=== PATIENT | male | born 1960 | race Caucasian/White ===

== ENCOUNTER → 2016-03-08 | Outpatient (CLI) | payer OTHER ==
[2016-03-08 10:41] LABS: Basophils % (A) 0 %; CH 31.1; CHCM 32.3; Eosinophils # (A) 0.1 k/uL (0-0.7); Eosinophils % (A) 1 %; HCT 45.6 % (39.0-53.0); HGB 14.5 gm/dL (13.0-17.5); Luc % (Auto) 3; Lymphocytes # (A) 1.5 k/uL (1.0-4.8); Lymphocytes % (A) 21 %; MCH 30.8 pg (25.0-35.0); MCHC 31.8 g/dL (31.0-37.0); MCV 96.6 fL (80.0-100.0); Mean Platelet Volume 6.5; Monocytes # (A) 0.5 k/uL (0-1.0); Monocytes % (A) 6 %; Neutrophils # (A) 5.1 k/uL (1.3-7.7); Neutrophils % (A) 69 %; RBC 4.71 m/uL (4.30-5.90); RDW 13.5 % (11.5-15.5); WBC 7.4 k/uL (3.8-10.6); WBC (Perox) 7.19
[2016-03-08 11:38] LABS: AST 23 U/L (17-59); Alkaline Phosphatase 70 U/L (38-126); Blood Urea Nitrogen 10 mg/dL (9-20); Calcium 9.6 mg/dL (8.4-10.2); Chloride 106 mmol/L (98-107); Cholesterol 223 mg/dL (<200); Glucose 92 mg/dL (74-99); HDL Cholesterol 38 mg/dL (40-60); Non-African American GFR(MDRD) >60 (>60 ml/min/1.73 sqM); Potassium 5.1 mmol/L (3.5-5.1); Sodium 143 mmol/L (137-145); Total Bilirubin 0.7 mg/dL (0.2-1.3); Total Protein 7.5 g/dL (6.3-8.2); Triglycerides 169 mg/dL (<150)
[2016-03-08 12:08] LABS: Hepatitis B Surface Ag Index 0.06
[2016-03-08 12:14] LABS: Hepatitis B Core IgM Index 0.03
[2016-03-08 12:25] LABS: Hemoglobin A1C 5.2 % (4.2-6.1); Hepatitis C Virus IgG Index 0.02
[2016-03-08 12:55] LABS: Hepatitis C Virus IgG Ab Negative (Negative)
[2016-03-08 13:09] LABS: ALT 35 U/L (21-72); Anion Gap 13 mmol/L; Carbon Dioxide 24 mmol/L (22-30)
[2016-03-08 13:59] LABS: Vitamin B12 309 pg/mL (239-931)
[2016-03-09 06:34] LABS: HIV-1/HIV-2 Ab Screen NONREAC (NON REAC)
== END | disposition home or self-care (01) ==
LOC: LABWHC1 10:01
PROVIDERS: ATTEND Nurse Practitioner
DX: F33.2 Major depressive disorder, recurrent severe without psychotic features (principal); Z79.899 Other long term (current) drug therapy
CPT/HCPCS: 36415; 80053; 80061; 80074; 82306; 82607; 83036; 83735; 84153; 84439; 84443; 85025; 87389

== ENCOUNTER → 2016-05-18 | Outpatient (CLI) | payer OTHER ==
--- NOTE | 2016-05-18 09:49 | XR ---
EXAM TYPE: LUMBAR SPINE X RAY SERIES COMPARISON: 07/08/2008 HISTORY: Chronic back pain TECHNIQUE: 4 views are submitted. FINDINGS: Alignment is anatomic. The pedicles are intact. The transverse processes are intact. Postsurgical changes are seen the lower lumbosacral level. There is a grade 1 anterolisthesis. Mild degenerative disc disease and hypertrophic changes at the remaining levels. Pedicles intact. Mul tilevel mild facet arthropathy. IMPRESSION: 1. Postsurgical change with grade 1 anterolisthesis L5 on S1. 2. Multilevel mild degenerative disc disease.
== END ==
LOC: RADXRMAIN 09:13
PROVIDERS: ATTEND Family Medicine
DX: M43.16 Spondylolisthesis, lumbar region (principal); M51.36 Other intervertebral disc degeneration, lumbar region
CPT/HCPCS: 72110

== ENCOUNTER → 2017-02-25 | Outpatient (CLI) | payer OTHER ==
[2017-02-25 12:22] LABS: Blood Urea Nitrogen 18 mg/dL (9-20)
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
== END | disposition home or self-care (01) ==
LOC: RADMRIMAIN 11:47
PROVIDERS: ATTEND Psychiatry & Neurology Neurology
DX: M47.816 Spondylosis without myelopathy or radiculopathy, lumbar region (principal)
CPT/HCPCS: 82565; 84520; 72158; 36415; A9581

== ENCOUNTER 2019-06-05 14:00 | Emergency (ER) | payer OTHER ==
[2019-06-05 14:08] VITALS: TEMP 98.4
[2019-06-05] MEDS ORDERED: LABETALOL 5 MG/ML VIAL MDV IVP STA (14:27)
[2019-06-05] MEDS ORDERED: ACETAMINOPHEN TAB 500 MG TAB PO STA (14:28)
--- NOTE | 2019-06-05 14:31 | ED ---
URI HPI - General Chief Complaint: Upper Respiratory Infection Stated Complaint: fever,cough Time Seen by Provider: 06/05/19 14:11 Source: patient, RN notes reviewed, old records reviewed Mode of arrival: ambulatory Limitations: no limitations - History of Present Illness Initial Comments: 59-year-old male who currently resides in a [facility] presents today with intermittent cough congestion and general malaise. He reports symptoms of worsening over the past week. He states that he has not had any medical care, and also reports that he is out of his typical blood pressure medication for many weeks. Patient states that he plans to move in with his son and his son's . He is concerned that he may have a illness such as cold that they could affect his sons . He wanted to make sure he had a "clean bill of health". Before moving in with them. - Related Data Home Medications Medication Instructions Recorded Confirmed Albuterol Inhaler (Bulk) [Ventolin 1 - 2 puff INHALATION RT-Q6H PRN 02/12/17 02/12/17 Hfa Inhaler] Ergocalciferol (Vitamin D2) 50,000 unit PO TH 02/12/17 02/12/17 [Vitamin D2] FLUoxetine HCL [PROzac] 60 mg PO DAILY 02/12/17 02/12/17 Lisinopril [Zestril] 5 mg PO DAILY 02/12/17 02/12/17 Naltrexone HCl [Revia] 50 mg PO DAILY 02/12/17 02/12/17 busPIRone HCl [Buspar] 10 mg PO BID 02/12/17 02/12/17 risperiDONE [RisperDAL] 0.5 mg PO HS 02/12/17 02/12/17 traMADol HCL [Ultram] 50 mg PO TID PRN 02/12/17 02/12/17 Previous Rx's Medication Instructions Recorded Albuterol Inhaler [Ventolin Hfa 1 puff INHALATION RT-QID #1 puff 06/05/19 Inhaler] Azithromycin [Zithromax Z-pack] 0 mg PO DIRECTED #6 tab 06/05/19 Lisinopril [Zestril] 5 mg PO DAILY #14 tab 06/05/19 methylPREDNISolone Dose Pack 4 mg PO DIRECTED #21 package 06/05/19 [Medrol Dose Pack] Allergies Allergy/AdvReac Type Severity Reaction Status Date / Time No Known Allergies Allergy Unverified 02/12/17 15:02 Review of Systems ROS Statement: Those systems with pertinent positive or pertinent negative responses have been documented in the HPI. ROS Other: All systems not noted in ROS Statement are negative. Past Medical History Additional Past Medical History / Comment(s): chronic pain History of Any Multi-Drug Resistant Organisms: None Reported Past Surgical History: Back Surgery, Orthopedic Surgery Past Psychological History: Anxiety, Bipolar, Depression Smoking Status: Current every day smoker Past Alcohol Use History: Occasional Past Drug Use History: None Reported General Exam - General Exam Comments Initial Comments: Well-appearing 59-year-old male. No significant distress. Limitations: no limitations General appearance: alert, in no apparent distress Head exam: Present: atraumatic, normocephalic, normal inspection Eye exam: Present: normal appearance, PERRL, EOMI. Absent: scleral icterus, conjunctival injection, periorbital swelling ENT exam: Present: normal exam, mucous membranes moist Neck exam: Present: normal inspection. Absent: tenderness, meningismus, lymphadenopathy Respiratory exam: Present: normal lung sounds bilaterally. Absent: respiratory distress, wheezes, rales, rhonchi, stridor Cardiovascular Exam: Present: regular rate, normal rhythm, normal heart sounds. Absent: systolic murmur, diastolic murmur, rubs, gallop, clicks GI/Abdominal exam: Present: soft, normal bowel sounds. Absent: distended, te nderness, guarding, rebound, rigid Extremities exam: Present: normal inspection, full ROM, normal capillary refill. Absent: tenderness, pedal edema, joint swelling, calf tenderness Back exam: Present: normal inspection Neurological exam: Present: alert, oriented X3, CN II-XII intact Psychiatric exam: Present: normal affect, normal mood Skin exam: Present: warm, dry, intact, normal color. Absent: rash Course Vital Signs 06/05/19 06/05/19 06/05/19 14:06 14:08 15:08 Temperature 98.4 F Pulse Rate 100 65 Respiratory 20 18 18 Rate Blood Pressure 214/95 180/91 O2 Sat by Pulse 97 95 Oximetry Medical Decision Making - Medical Decision Making This patient's a pleasant 59-year-old male, he presents today for concern for cough congestion. He does currently live in a [facility]. He states she's been having some general malaise and upper respirator symptoms. He will states that he also has not had his blood pressure medication for weeks. He arrives emergency department hypertensive with blood pressure 200/100. Patient is a denies any chest pain, headache or symptoms related to high blood pressure. Patient's lungs are clear. No wheezing. Lab work was reviewed, and I did do a Covid 19 T Patient has been exposed to public and concern for high risk patients that he lives with in his [facility]. This test will be pending. Discussed that trish janie should practice self quarnetining with symptoms and advised on staying away from others until symptom free. I discussed that his blood work was unremarkable and chest x-ray shows no acute changes. Patient influenza test is negative. Covid 19 test is pending. Patient will be treated at this time with steroids for minor cough congestion and azithromycin with a history of smoking and COPD exacerbation. Discussed return parameters and following up with PCPs. I discussed also restarting the Patient on his blood pressure medication. - Lab Data Result diagrams: 06/05/19 14:48 06/05/19 14:48 Lab Results 06/05/19 06/05/19 06/05/19 Range/Units 14:45 14:48 14:48 WBC 8.6 (3.8-10.6) k/uL RBC 5.11 (4.30-5.90) m/uL Hgb 16.4 (13.0-17.5) gm/dL Hct 48.5 (39.0-53.0) % MCV 94.9 (80.0-100.0) fL MCH 32.2 (25.0-35.0) pg MCHC 33.9 (31.0-37.0) g/dL RDW 13.1 (11.5-15.5) % Plt Count 361 (150-450) k/uL Neutrophils % 71 % Lymphocytes % 20 % Monocytes % 5 % Eosinophils % 1 % Basophils % 1 % Neutrophils # 6.2 (1.3-7.7) k/uL Lymphocytes # 1.7 (1.0-4.8) k/uL Monocytes # 0.5 (0-1.0) k/uL Eosinophils # 0.1 (0-0.7) k/uL Basophils # 0.0 (0-0.2) k/uL Sodium 133 L (137-145) mmol/L Potassium 5.3 H (3.5-5.1) mmol/L Chloride 100 (98-107) mmol/L Carbon Dioxide 20 L (22-30) mmol/L Anion Gap 13 mmol/L BUN 11 (9-20) mg/dL Creatinine 0.85 (0.66-1.25) mg/dL Est GFR (CKD-EPI)AfAm >90 (>60 ml/min/1.73 sqM) Est GFR (CKD-EPI)NonAf >90 (>60 ml/min/1.73 sqM) Glucose 92 (74-99) mg/dL Calcium 9.7 (8.4-10.2) mg/dL Total Bilirubin 1.0 (0.2-1.3) mg/dL AST 50 (17-59) U/L ALT 28 (4-49) U/L Alkaline Phosphatase 77 (38-126) U/L Total Protein 8.2 (6.3-8.2) g/dL Albumin 5.0 (3.5-5.0) g/dL Influenza Type A RNA Not Detected (Not Detectd) Influenza Type B (PCR) Not Detected (Not Detectd) Disposition Clinical Impression: Hypertension, Bronchitis, Smoker Disposition: HOME SELF-CARE Condition: Good Instructions (If sedation given, give patient instructions): Upper Respiratory Infection (ED) Additional Instructions: Patient advised to follow-up with primary care physician. Resume blood pressure medication. Take the antibiotic and steroid. Recommended stop smoking. Patient should practice self quarentining while having these symptoms to avoid exposing others to being sick. Prescriptions: methylPREDNISolone Dose Pack [Medrol Dose Pack] 4 mg PO DIRECTED #21 package Albuterol Inhaler [Ventolin Hfa Inhaler] 1 puff INHALATION RT-QID #1 puff Lisinopril [Zestril] 5 mg PO DAILY #14 tab Azithromycin [Zithromax Z-pack] 0 mg PO DIRECTED #6 tab Is patient prescribed a controlled substance at d/c from ED?: No Referrals: [facility] [Primary Care Provider] - 1-2 days Time of Disposition: 15:45
[2019-06-05 15:04] LABS: Basophils % (A) 1 %; Eosinophils # (A) 0.1 k/uL (0-0.7); Eosinophils % (A) 1 %; HCT 48.5 % (39.0-53.0); HGB 16.4 gm/dL (13.0-17.5); Lymphocytes # (A) 1.7 k/uL (1.0-4.8); Lymphocytes % (A) 20 %; MCH 32.2 pg (25.0-35.0); MCHC 33.9 g/dL (31.0-37.0); MCV 94.9 fL (80.0-100.0); Mean Platelet Volume 7.2; Monocytes # (A) 0.5 k/uL (0-1.0); Monocytes % (A) 5 %; Neutrophils # (A) 6.2 k/uL (1.3-7.7); Neutrophils % (A) 71 %; Platelet Count 361 k/uL (150-450); RBC 5.11 m/uL (4.30-5.90); RDW 13.1 % (11.5-15.5); WBC 8.6 k/uL (3.8-10.6)
[2019-06-05 15:10] VITALS: RESP 18
[2019-06-05 15:15] LABS: ALT 28 U/L (4-49); AST 50 U/L (17-59); African American GFR (CKD) >90 (>60 ml/min/1.73 sqM); Alkaline Phosphatase 77 U/L (38-126); Anion Gap 13 mmol/L; Blood Urea Nitrogen 11 mg/dL (9-20); Calcium 9.7 mg/dL (8.4-10.2); Carbon Dioxide 20 mmol/L (22-30); Chloride 100 mmol/L (98-107); Glucose 92 mg/dL (74-99); Non-African American GFR(CKD) >90 (>60 ml/min/1.73 sqM); Sodium 133 mmol/L (137-145); Total Protein 8.2 g/dL (6.3-8.2)
[2019-06-05 15:17] LABS: Potassium 5.3 mmol/L (3.5-5.1)
[2019-06-05] MEDS ORDERED: cloNIDine HCL 0.2 MG TAB PO STA (15:23)
--- NOTE | 2019-06-05 15:28 | XR ---
EXAMINATION TYPE: XR chest 1V DATE OF EXAM: 06/05/2019 HISTORY: Shortness of breath. COMPARISON: 02/22/2014 TECHNIQUE: Single view of the chest is submitted. FINDINGS: Demonstrated are scattered senescent parenchymal change. There is no evidence for focal infiltrate. The heart is stable. Hilar and mediastinal structures are within normal limits. Degenerative changes are seen of the dorsal spine. IMPRESSION: 1. Chronic changes without evidence for acute pulmonary disease.
[2019-06-05 16:13] VITALS: BP 145/79; PULSE 67
== END 2019-06-05 16:14 | disposition home or self-care (01) ==
LOC: EC 14:00
DX: U07.1 COVID-19 (principal); J40 Bronchitis, not specified as acute or chronic; I10 Essential (primary) hypertension; J44.9 Chronic obstructive pulmonary disease, unspecified; F41.9 Anxiety disorder, unspecified; F32.9 Major depressive disorder, single episode, unspecified; F17.200 Nicotine dependence, unspecified, uncomplicated; Z79.899 Other long term (current) drug therapy
CPT/HCPCS: 36415; 71045; 80053; 85025; 87502; 87635; 96374; 99284

== ENCOUNTER → 2020-12-16 | Outpatient (CLI) | payer OTHER ==
--- NOTE | 2020-12-17 04:58 | MR ---
EXAMINATION TYPE: MR cervical spine wo/w con DATE OF EXAM: 12/16/2020 COMPARISON: None HISTORY: cervicalgia CONTRAST: Standard multiplanar, multisequence MRI departmental protocol utilizing 7.5 mL intravenous Gadavist g adolinium contrast. Cervical vertebra have normal alignment. There is mild uniform narrowing of cervical disc spaces. The re is mild spurring of the endplates throughout the cervical spine. Cervical spinal cord shows no emmy ma. Spinal canal is narrowed to 7.5 mm at C6-7 which is the narrowest point. Canal measures 8 mm at C 5-6. There is no compression fracture. Brainstem appears intact. The facet joints appear intact. Ther e is no paraspinal mass. Contrast images show no pathologic enhancement. IMPRESSION: Mild multilevel spondylotic changes. No significant spinal stenosis. Multilevel mild posterior cervic al disc bulging from C4 to C7. No fracture.
== END | disposition home or self-care (01) ==
LOC: RADMRIMAIN 10:19
PROVIDERS: ATTEND Psychiatry & Neurology Neurology
DX: M50.223 Other cervical disc displacement at C6-C7 level (principal); M47.812 Spondylosis without myelopathy or radiculopathy, cervical region
CPT/HCPCS: 72156; A9585

== ENCOUNTER 2023-05-27 10:07 | Emergency (ER) | payer OTHER ==
[2023-05-27 10:22] VITALS: RESP 18
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
[2023-05-27] MEDS: KETOROLAC 15 MG/ML 1 ML VIAL IM STA (10:46)
[2023-05-27] MEDS: MORPHINE SULFATE 2 MG/ML SYRINGE IM STA (10:47)
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
--- NOTE | 2023-05-27 10:56 | XR ---
EXAMINATION TYPE: XR hand complete RT DATE OF EXAM: 05/27/2023 COMPARISON: NONE HISTORY: Pain TECHNIQUE: Three views are submitted. FINDINGS: The osseous structures are intact. The joint spaces are preserved and there is no acute fracture or dislocation. Chronic deformity involving the fifth metacarpal suggests remote trauma. Mild narrowing of the radiocarpal joint, first carpometacarpal and first MCP joint. Cortical thickening of the dist al ulna appears chronic. There is a healing fracture base proximal phalanx third digit. IMPRESSION: 1. No definite acute fracture or dislocation if symptoms persist, follow-up study in 7 to 10 days wo uld be suggested. 2. There is a healing fracture base proximal phalanx third digit.
[2023-05-27 11:38] VITALS: TEMP 98.1
[2023-05-27 12:16] VITALS: BP 180/92; PULSE 74
== END 2023-05-27 11:55 | disposition home or self-care (01) ==
LOC: EC 10:07
DX: S62.612A Displaced fracture of proximal phalanx of right middle finger, initial encounter for closed fracture (principal); S59.911A Unspecified injury of right forearm, initial encounter; G89.29 Other chronic pain; F17.210 Nicotine dependence, cigarettes, uncomplicated; V89.2XXA Person injured in unspecified motor-vehicle accident, traffic, initial encounter; Y92.410 Unspecified street and highway as the place of occurrence of the external cause
CPT/HCPCS: 73090; 73130; 99406; 99283; 96372 ×2; J2270; J1885

== ENCOUNTER 2023-07-07 15:34 | Emergency (ER) | payer OTHER ==
[2023-07-07 17:26] VITALS: BP 152/81; PULSE 69; RESP 17; TEMP 97.5
--- NOTE | 2023-07-07 19:44 | ED ---
General Adult HPI - General Chief complaint: Alcohol Stated complaint: ETOH Time Seen by Provider: 07/07/23 18:00 Source: patient, RN notes reviewed, old records reviewed Mode of arrival: ambulatory Limitations: no limitations - History of Present Illness Initial comments: Patient is a 63-year-old male who is brought in by police for public alcohol intoxication. No other complaints at this time. Denies any suicidal homicidal ideations, intents, plans. Denies any hallucinations. States he was drinking and was walking and police became concerned so they wanted him evaluated here. They stated they could not take him to [facility] to sober up. Denies any history of alcohol withdrawals. Has no other acute complaints at this time. Is coope rative. Is willing to wait until he is sober for discharge. - Related Data Home Medications Medication Instructions Recorded Confirmed Albuterol Inhaler [Ventolin Hfa 1 - 2 puff INHALATION RT-Q6H PRN 02/12/17 06/05/19 Inhaler] FLUoxetine HCL 80 mg PO DAILY 06/05/19 06/05/19 busPIRone HCL [Buspar] 15 mg PO BID 06/05/19 06/05/19 Previous Rx's Medication Instructions Recorded Ibuprofen [Motrin] 800 mg PO Q8H PRN #30 tab 05/27/23 Allergies Allergy/AdvReac Type Severity Reaction Status Date / Time No Known Allergies Allergy Verified 07/07/23 16:50 Review of Systems ROS Statement: Those systems with pertinent positive or pertinent negative responses have been documented in the HPI. Review of Systems: CONST: Denies fever EYES: Denies blurry vision ENT: Denies nasal congestion C/V: Denies Chest pain RESP: Denies shortness of breath GI: Denies abdominal pain : Denies dysuria SKIN: Denies rash. MSK: Denies joint pain. NEURO: Denies headache ROS Other: All systems not noted in ROS Statement are negative. Past Medical History Additional Past Medical History / Comment(s): chronic pain History of Any Multi-Drug Resistant Organisms: None Reported Past Surgical History: Back Surgery, Orthopedic Surgery Past Psychological History: Anxiety, Bipolar, Depression Smoking Status: Current every day smoker Past Alcohol Use History: Occasional Past Drug Use History: None Reported General Exam - General Exam Comments Initial Comments: General: Appears in no acute distress. HEAD: Normal with no signs of head trauma. EYES: EOMI. ENT: Hearing grossly intact. RESPIRATORY: No respiratory distress. C/V: Regular rate and rhythm. ABD: Abdomen is nondistended. EXT: No obvious deformity. SKIN: No rashes or lesions observed on exposed skin. NEURO: Alert and oriented. No deficits. Limitations: no limitations Course Vital Signs 07/07/23 16:45 Temperature 97.5 F L Pulse Rate 69 Respiratory 17 Rate Blood Pressure 152/81 O2 Sat by Pulse 99 Oximetry Medical Decision Making - Medical Decision Making Was pt. sent in by a medical professional or institution (, LISANDRA, INDUSTRIAL ACCOUNTANT, urgent care, hospital, or fci...) When possible be specific @ -No Did you speak to anyone other than the patient for history (EMS, parent, family, police, friend...)? What history was obtained from this source @ -No Did you review nursing and triage notes (agree or disagree)? Why? @ -I reviewed and agree with nursing and triage notes Were old charts reviewed (outside hosp., previous admission, EMS record, old EKG, old radiological studies, urgent care reports/EKG's, [facility] records)? Report findings @ -No old charts were reviewed Differential Diagnosis (chest pain, altered mental status, abdominal pain women, abdominal pain men, vaginal bleeding, weakness, fever, dyspnea, syncope, headache, dizziness, GI bleed, back pain, seizure, CVA, palpatations, mental health, musculoskeletal)? @ -Alcohol intoxication, alcohol abuse, substance abuse. This list is not all inclusive. EKG interpreted by me (3pts min.). @ -None done X-rays interpreted by me (1pt min.). @ -None done CT interpreted by me (1pt min.). @ -None done U/S interpreted by me (1pt. min.). @ -None done What testing was considered but not performed or refused? (CT, X-rays, U/S, labs)? Why? @ -None What meds were considered but not given or refused? Why? @ -None Did you discuss the management of the patient with other professionals (professionals i.e. LISANDRA Khalil, INDUSTRIAL ACCOUNTANT, lab, RT, psych nurse, clinical social work aide, double back operator, teacher, chief innovation officer, field nurse case manager)? Give summary @ -No Was smoking cessation discussed for >3mins.? @ -No Was critical care preformed (if so, how long)? @ -No Were there social determinants of health that impacted care today? How? (Homelessness, low income, unemployed, alcoholism, drug addiction, transportation, low edu. Level, literacy, decrease access to med. care, [facility], rehab)? @ -No Was there de-escalation of care discussed even if they declined (Discuss DNR or withdrawal of care, Hospice)? DNR status @ -No What co-morbidities impacted this encounter? (DM, HTN, Smoking, COPD, CAD, Cancer, CVA, ARF, Chemo, Hep., AIDS, mental health diagnosis, sleep apnea, morbid obesity)? @ -None Was patient admitted / discharged? Hospital course, mention meds given and route, prescriptions, significant lab abnormalities, going to OR and other pertinent info. @ -Patient brought in for acute alcohol intoxication. Has no other acute complaints at this time. Does endorse drinking alcohol but no other drugs this evening. Vital signs within acceptable limits. Brought in by police as they cannot take him to [facility] as he is not under arrest and they cannot observe him for sobriety. Patient was cooperative with no acute complaints and acting appropriately. Appears somewhat clinically sober at this time but due to his BAT being 0.17, we will observe the patient until clinically sober. Patient was in agreement this plan. Patient's brother does present to the emergency department and is in agreement to bring the patient home. Patient discharged into the care of his brother. I instructed the patient to follow up with their PCP in the next 1-3 days. I explained that the patient should return to the emergency department if they experience any worsening symptoms. Strict return precautions were discussed with the patient. The patient expressed understanding of these instructions. I answered all questions that the patient had. The patient was discharged home in good condition with their prescriptions and follow up information. Undiagnosed new problem with uncertain prognosis? @ -No Drug Therapy requiring intensive monitoring for toxicity (Heparin, Nitro, Insulin, Cardizem)? @ -No Were any procedures done? @ -No Diagnosis/symptom? @ -Alcohol intoxication Acute, or Chronic, or Acute on Chronic? @ -Acute Uncomplicated (without systemic symptoms) or Complicated (systemic symptoms)? @ -Uncomplicated Side effects of treatment? @ -No Exacerbation, Progression, or Severe Exacerbation? @ -No Poses a threat to life or bodily function? How? (Chest pain, [place], [place], pneumonia, PE, COPD, DKA, ARF, appy, cholecystitis, CVA, Diverticulitis, Homicidal, Suicidal, threat to staff... and all critical care pts) @ -Not acutely. Chronically can cause bodily dysfunction such as liver disease. Disposition Clinical Impression: Alcohol intoxication Disposition: HOME SELF-CARE Condition: Good Instructions (If sedation given, give patient instructions): Alcohol Intoxication (ED) Is patient prescribed a controlled substance at d/c from ED?: No Referrals: None,Stated [Primary Care Provider] - 1-2 days Time of Disposition: 19:44
== END 2023-07-07 19:50 | disposition home or self-care (01) ==
LOC: EC 15:34
DX: F10.129 Alcohol abuse with intoxication, unspecified (principal); F17.200 Nicotine dependence, unspecified, uncomplicated
CPT/HCPCS: 82075; 99283